=== PATIENT | female | born 1960 | race Caucasian/White ===

== ENCOUNTER → 2020-02-08 11:33 | Emergency (ER) | payer SELFPAY ==
--- NOTE | 2020-02-08 11:49 | ED_ITS ---
HPI - URI/Sore Throat General Stated Complaint: cough/sob Time Seen by Provider: 02/08/20 11:40 Source: patient, family and RN notes reviewed History of Present Illness HPI Narrative: Patient's son arrived requesting that patient be evaluated due to symptoms of shortness of breath, cough, chest tightness with deep breathing, and possible low-grade fevers. Patient's temperature was taken and temperature was 98.1 and the other 99.1. Patient states that she has history of COPD and hypertension. 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 Patient denies of any known positive cases in her current workplace. Patient is in no acute distress. Full assessment was not completed on the patient. Patient remained in her vehicle due to decreasing the risk of exposure to employees as well as non-sick patients for [facility]. Information/testing qualifications were filled out on ID website and patient did meet requirements for testing. Patient was called to return to the facility for further evaluation and it was explained to the patient and her son that we could not test for COVID however she does meet requirements and her authorization code would be given to her for further testing at another testing site. Patient son states that he would rather go to the testing site for further evaluation and testing rather than be seen at 2 facilities. Patient son came to the door and was given authorization code for testing as well as the address of a local testing site. Patient son was highly appreciative of the care they received in the authorization code provided. Patient was directed to [facility] in [place], and that facility was also notified, without breaking HIPAA violation, that patient was going to be coming to their facility with an authorization code. Facility was more than happy to see the patient. Patient son was also advised to call if he had any further questions or if the patient changed her mind and wished to be seen at our facility. Again, patient was in no acute distress and she was given a mask prior to leaving property. Further direction was given from upper management, and they are aware of the current situation. Patient will be called on her cell phone provided to the facility, as a follow-up later today. Related Data Allergies Allergy/AdvReac Type Severity Reaction Status Date / Time Penicillins Allergy Unknown hives Verified 08/26/19 13:39 Sulfa (Sulfonamide Allergy Unknown hives Verified 08/26/19 13:39 Antibiotics) Discharge Plan Discharge Follow-up/Referrals: UNKNOWN,DOCTOR [Primary Care Provider] -
== END | disposition left against medical advice (07) ==
LOC: EXPGLEN 11:35
PROVIDERS: Emergency Provider Nurse Practitioner Family
DX: R05 Cough (principal)
CPT/HCPCS: 99199

== ENCOUNTER 2020-05-22 12:01 | Observation (INO) | payer SELFPAY ==
[2020-05-22] VITALS (12 sets, daily range): BP systolic 111–148; BP diastolic 64–99; PULSE 74–92; RESP 16–23; TEMP 36.2–36.7; O2SAT 92–97
--- NOTE | ~2020-05-22 | XR_ITS ---
EXAMINATION: XR chest 2V DATE: 05/22/2020 12:42 INDICATION: Shortness of breath. TECHNIQUE: Frontal and lateral views of the chest were obtained. COMPARISON: None. FINDINGS: There is mild atelectasis in left upper lobe. No pleural effusion or pneumothorax. The hear t size is normal. IMPRESSION: 1. Mild atelectasis in left upper lobe. Reviewed, dictated and finalized at location A.
--- NOTE | 2020-05-22 12:20 | ECG_ITS ---
Measurements Intervals [place] Rate: 91 P: 244 [place]: 137 QRS: 67 QRSD: 82 T: 87 QT: 353 QTc: 435 Interpretive Statements ECTOPIC ATRIAL RHYTHM BASELINE ARTIFACT- I, II, III, AVR, AVL, AVF, V1 ABNORMAL ECG Electronically Signed On 05-22-2020 15:18:05 CDT by Eliecer Burgess D.O.
--- NOTE | 2020-05-22 12:34 | PC.NURSE ---
Pt to imaging
[2020-05-22] MEDS: ALBUTEROL SULFATE NEB 2.5 MG/0.5 ML INH 5 MG INHALATION (12:41)
[2020-05-22] MEDS: IPRATROPIUM BR 0.02% INH SOLN 0.5 MG/2.5 ML VIAL INHALATION (12:41)
--- NOTE | 2020-05-22 12:44 | PC.NURSE ---
Pt getting neb treatment. Will wait to draw blood and give other medication until it is done, due to the aersolazation of the treatment
[2020-05-22] MEDS: methylPREDNISolone SOD SUCC 125 MG VIAL IV PUSH ×2 (12:53→17:47)
--- NOTE | 2020-05-22 13:07 | PC.NURSE ---
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 Another medication was taken from [facility] and original was thrown out.
[2020-05-22 13:27] LABS: INR 0.9; Prothrombin Time 11.8 Seconds (11.1-14.7)
[2020-05-22 14:27] LABS: Basophils Percent Auto 0.3 % (0.2-1.2); Eosinophils Percent Auto 0.3 % (0-4.4); Hematocrit 43.8 % (37.0-47.0); Hemoglobin 14.8 g/dL (12.0-15.0); Immature Granulocyte Absolute 0.02 K/mm3 (0.00-0.031); Immature Granulocyte Percent A 0.3 % (0-0.5); Lymphocytes Absolute Auto 1.28 K/mm3 (0.9-3.2); Lymphocytes Percent Auto 18.2 % (18.3-44.2); Mean Corpuscular HGB Conc 33.8 g/dl (32-36); Mean Corpuscular Hemoglobin 31.3 pg (26-34); Mean Corpuscular Volume 92.6 fl (80-100); Mean Platelet Volume 9.2 fl (7.4-10.4); Monocytes Absolute Auto 0.3 K/mm3 (0.1-0.6); Monocytes Percent Auto 3.7 % (2.6-8.5); Neutrophils Absolute Auto 5.5 K/mm3 (1.3-6.7); Neutrophils Percent Auto 77.2 % (45.5-73.1); Platelet Count Result 284 k/mm3 (150-375); Red Blood Count 4.73 M/mm3 (4.2-5.4); Red Cell Distribution Width 12.6 % (11.5-14.5); White Blood Count 7.1 K/mm3 (4.5-10.0)
[2020-05-22 14:44] LABS: Alanine Aminotransferase 17 U/L (4-35); Albumin Level 4.7 g/dL (3.5-5.1); Alkaline Phosphatase 85 U/L (38-126); Aspartate Amino Transferase 27 U/L (14-36); Bilirubin,Total 0.5 mg/dL (0.2-1.3); Blood Urea Nitrogen 13 mg/dL (7-17); Calcium 10.9 mg/dL (8.4-10.2); Carbon Dioxide 24 mmol/L (22-30); Chloride 103 mmol/L (98-107); Estimated CRCL calculation 98 ml/min; Estimated Glomerular Filt Rate > 60; Glucose 109 mg/dL (65-105); Potassium 3.5 mmol/L (3.4-5.0); Sodium 136 mmol/L (137-145)
[2020-05-22 14:49] LABS: NT Pro B Type Natriuretic Pept 65 PG/ML (5-100)
--- NOTE | 2020-05-22 15:29 | ED.GENADULT ---
HPI - General Adult General Chief complaint: Shortness of Breath/Dyspnea Stated complaint: sob/tested for covid yest ? Time Seen by Provider: 05/22/20 12:11 Source: patient and family Mode of arrival: ambulatory Limitations: no limitations History of Present Illness HPI narrative: 60-year-old with a history of COPD, hypertension here with complaints of shortness of breath for past few days. Patient states that she has been using her home nebulizer treatment with no significant relief. She denies any fever or chills. Has nonproductive cough at times. No history of any COVID exposure. Onset (ago): week(s) (1) Severity: moderate Relieving factors: none Associated symptoms: cough and shortness of breath Related Data Home Medications Medication Instructions Recorded Confirmed albuterol sulfate 1 INHALATION TID PRN 05/22/20 amlodipine 5 mg PO DAILY 05/22/20 05/22/20 losartan-hydrochlorothiazide 1 tablet PO DAILY 05/22/20 05/22/20 Allergies Allergy/AdvReac Type Severity Reaction Status Date / Time Penicillins Allergy Unknown hives Verified 05/22/20 12:12 Sulfa (Sulfonamide Allergy Unknown hives Verified 05/22/20 12:12 Antibiotics) Review of Systems Review of Systems: All systems reviewed & are unremarkable except as noted in HPI and below Constitutional: Constitutional: Reports no additional constitutional complaints Eyes: Eyes: Reports no additional eye complaints Cardiovascular: Cardiovascular: Reports no additional cardiovascular complaints Respiratory: Respiratory: Reports as per HPI Gastrointestinal: Gastrointestinal: Reports no additional gastrointestinal complaints Musculoskeletal: Musculoskeletal: Reports no additional musculoskeletal complaints Neurologic: Reports system reviewed and no additional complaints, except as documented Psychiatric: Psychiatric: Reports no additional psychiatric complaints [facility] Social History Social History (Updated 05/22/20 @ 15:35 by Nathan Masterson MD) Smoking status: Current every day smoker Tobacco type: cigarettes Alcohol intake: never Substance use: never Living arrangements: alone Gender identity (if verbalized by the patient): Female Exam Narrative: Exam Narrative: GENERAL: Well-appearing, well-nourished, and in no acute distress. HEAD: Normocephalic, atraumatic. EYES: PERRLA and EOMI. ENT: Nares clear, no rhinorrhea or epistaxis. Mucous membranes moist. NECK: Supple. CHEST: Bilateral wheeze no respiratory distress. HEART: Regular rate and rhythm. No murmur heard. Normal peripheral pulses. ABDOMEN: Soft, nontender, nondistended, normal active bowel sounds. EXTREMITIES: Normal range of motion. No edema. SKIN: Warm, dry, no rash. NEURO: No focal deficits. Alert and oriented x3. PSYCH: Normal mood and affect. Course Course Emergency Course: Patient felt better after nebulizer treatment however her O2 saturations were 88 to 87% on room air. With 2 L picked up to 94% I discussed labs EKG and chest x-ray findings with the patient and the son will admit her for COPD exacerbation. Vital Signs Vital signs: Vital Signs Temperature 36.7 C 05/22/20 12:05 Pulse Rate 92 05/22/20 12:05 Respiratory Rate 18 05/22/20 12:05 Blood Pressure 148/90 H 05/22/20 12:05 Pulse Oximetry 94 05/22/20 12:05 Temperature 36.7 C 05/22/20 12:05 Pulse Rate 76 05/22/20 15:12 Respiratory Rate 22 H 05/22/20 15:12 Blood Pressure 125/78 05/22/20 15:12 Pulse Oximetry 92 05/22/20 15:12 Medical Decision Making Differential Diagnosis Differential Diagnosis: CHF, COPD, bronchitis, pneumonia Vital Signs Vital Signs: Vital Signs Temperature 36.7 C 05/22/20 12:05 Pulse Rate 92 05/22/20 12:05 Respiratory Rate 18 05/22/20 12:05 Blood Pressure 148/90 H 05/22/20 12:05 Pulse Oximetry 94 05/22/20 12:05 Temperature 36.7 C 05/22/20 12:05 Pulse Rate 76 05/22/20 15:12 Respiratory Rate 22 H 05/22/20 15:12 Blood P
[2020-05-22 15:41] LABS: Troponin I 0.022 ng/mL (0.000-0.034)
--- NOTE | 2020-05-22 16:35 | PC.NURSE ---
Called to give report and they did not recieve the SBAR I set at 1417. Will send SBAR up in tube station now
--- NOTE | 2020-05-22 17:52 | ADMGEN ---
This patient, Majrorie Rhodes, was admitted to [facility] Surg Room 329-01. Patient/family oriented to hospital policies and general routines including ID bracelet, bed and alarms, visiting hours, pain management, procedures, bathroom and other care routines, personal items, smoking policy, room service/diet, and visiting hours. Valuables list has been completed. Information on how to activate the Rapid Response Team has been discussed. Patient/Family are encouraged to report perceived risks to care and to ask questions if they do not understand what they are told or what they should do.
[2020-05-22] MEDS: ACETAMINOPHEN 325 MG TABLET 650 MG PO (19:42)
[2020-05-22] MEDS: ALBUTEROL SULFATE (*SP) AEROSOL 1 PUFF 2 PUFF INHALATION (21:02)
--- NOTE | 2020-05-22 21:39 | PM.IMHP ---
H&P: HPI History of Present Illness Chief complaint: COPD exacerbation Narrative: Marjorie Rhodes is a 60 year old female who has a history of COPD. And also hypertension. 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 She said that every Wednesday they get checked for COVID. She stated she got checked for COVID this last week and was told that she was negative. The patient does smoke a half pack to a pack cigarettes a day. She stated that since she got the results of her COVID testing that was negative she felt terrible. She said on Wednesday she just was not feeling very well but did have a fever. She said she felt terrible over the weekend. She had been coughing and short of breath she had been using her nebulizer machine. 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 She is not coughing anything up. At home. She said that the residents at [facility] do have COVID there but none of the employees have been positive. The patient stated that she was tested at the outside facility and was not tested here. However she was placed on isolation here. Patient was started on Solu-Medrol and inhalers. Date of service 05/22/2020 Review of Systems Review of Systems: All systems reviewed & are unremarkable except as noted in HPI and below Constitutional: Constitutional: Reports as per HPI and Reports no additional constitutional complaints Eyes: Eyes: Reports as per HPI and Reports no additional eye complaints ENT: Reports system reviewed and no additional complaints, except as documented and Reports Normal hearing present Cardiovascular: Cardiovascular: Reports no additional cardiovascular complaints Respiratory: Respiratory: Reports no additional respiratory complaints and Reports no additional respiratory complaints Gastrointestinal: Gastrointestinal: Reports as per HPI and Reports no additional gastrointestinal complaints Musculoskeletal: Musculoskeletal: Reports no additional musculoskeletal complaints Integumentary/Breasts: Skin/Breast: Reports system reviewed and no additional complaints, except as docu and Reports as per HPI Neurologic: Reports system reviewed and no additional complaints, except as documented, Reports as per HPI and Reports Normal hearing present Psychiatric: Psychiatric: Reports no additional psychiatric complaints and Reports as per HPI Endocrine: Endocrine: Reports no additional endocrine complaints Hematologic/Lymphatic: Hematologic/Lymphatic: Reports no additional hematologic/lymphatic complaints Allergic/Immunologic: Allergic/Immunologic: Reports no additional allergic/immunologic complaints [facility] Surgical History Surgical History (Updated 05/22/20 @ 21:47 by Trish Flaherty NP) H/O: hysterectomy History of tonsillectomy Hx of cholecystectomy Family History Family History Mother Hypertension Father Myocardial infarction Sibling Hypertension Social History Social History (Updated 05/22/20 @ 21:47 by Trish Flaherty NP) Social History: Patient stated that she smokes anywhere from half to a pack a cigarettes a day. She denies any marijuana or street drugs. She is and she has 3 children. She does not have a durable power deputy county attorney for healthcare but desires to be a full code at this time. Smoking packs per day: 1 Smoking cigarettes per day: 20.0 Smoking status: Current every day smoker Tobacco type: cigarettes Alcohol intake: never Substance use: never Living arrangements: alone Gender identity (if verbalized by the patient): Female Spiritual care concerns: No Meds Home Medications and Allergies Home Medications Medication Instructions Recorded Confirmed Type albuterol sulfate 2.5 mg INHALATION TID PRN 05/22/20 05/22/20 History amlodipine 5 mg PO DAILY 05/22/20 05/22/20 History losartan-hydrochlorothiazide 1 tablet PO DAILY 05/22/20 05/22/20 History Allergies Allergy/AdvReac Type Se
[2020-05-22] MEDS: NICOTINE (*PBKC) 21 MG PATCH 1 PATCH TRANSDERM (22:28)
[2020-05-22] MEDS: methylPREDNISolone SOD SUCC 125 MG VIAL 80 MG IV PUSH (23:48)
[2020-05-23 02:00] VITALS: BP 120/68; PULSE 69; RESP 20; TEMP 36.8; O2SAT 96
[2020-05-23 06:00] VITALS: BP 119/68; PULSE 76; RESP 20; TEMP 36.3; O2SAT 98
[2020-05-23] MEDS: methylPREDNISolone SOD SUCC 125 MG VIAL 80 MG IV PUSH ×2 (06:05→12:24)
[2020-05-23 06:55] LABS: Basophils Percent Auto 0.1 % (0.2-1.2); Hematocrit 43.8 % (37.0-47.0); Immature Granulocyte Absolute 0.02 K/mm3 (0.00-0.031); Immature Granulocyte Percent A 0.3 % (0-0.5); Lymphocytes Absolute Auto 0.67 K/mm3 (0.9-3.2); Lymphocytes Percent Auto 9.1 % (18.3-44.2); Mean Corpuscular HGB Conc 34.2 g/dl (32-36); Mean Corpuscular Hemoglobin 31.1 pg (26-34); Mean Corpuscular Volume 90.9 fl (80-100); Mean Platelet Volume 9.2 fl (7.4-10.4); Monocytes Absolute Auto 0.2 K/mm3 (0.1-0.6); Monocytes Percent Auto 3.2 % (2.6-8.5); Neutrophils Absolute Auto 6.5 K/mm3 (1.3-6.7); Neutrophils Percent Auto 87.3 % (45.5-73.1); Platelet Count Result 297 k/mm3 (150-375); Red Blood Count 4.82 M/mm3 (4.2-5.4); Red Cell Distribution Width 12.3 % (11.5-14.5); White Blood Count 7.4 K/mm3 (4.5-10.0)
[2020-05-23 07:04] LABS: Lactic Acid 0.9 mmol/L (0.7-2.1)
[2020-05-23 07:06] LABS: Bilirubin,Total 0.5 mg/dL (0.2-1.3); Blood Urea Nitrogen 17 mg/dL (7-17); Chloride 103 mmol/L (98-107)
[2020-05-23 07:49] LABS: Alanine Aminotransferase 17 U/L (4-35); Albumin Level 4.7 g/dL (3.5-5.1); Alkaline Phosphatase 83 U/L (38-126); Aspartate Amino Transferase 22 U/L (14-36); CRP 0.7 mg/dL (<1.0); Calcium 11.1 mg/dL (8.4-10.2); Carbon Dioxide 24 mmol/L (22-30); Estimated CRCL calculation 98 ml/min; Estimated Glomerular Filt Rate > 60; Glucose 137 mg/dL (65-105); Magnesium 2.1 mg/dL (1.6-2.3); Potassium 4.1 mmol/L (3.4-5.0); Sodium 137 mmol/L (137-145)
[2020-05-23 08:45] VITALS: O2SAT 92
[2020-05-23] MEDS: ALBUTEROL SULFATE (*SP) AEROSOL 1 PUFF 2 PUFF INHALATION ×2 (08:47→12:51)
[2020-05-23] MEDS: ENOXAPARIN 40 MG/0.4 ML SYRINGE SUB-Q (08:55)
[2020-05-23] MEDS: AMLODIPINE BESYLATE 5 MG TABLET PO (08:56)
[2020-05-23] MEDS: LOSARTAN POTASSIUM 50 MG TABLET PO (08:56)
[2020-05-23] MEDS: hydroCHLOROthiazide 12.5 MG CAPSULE PO (08:56)
--- NOTE | 2020-05-23 09:27 | PCRCNOTE ---
Pt only takes the Albuterol inhaler at home PRN and she takes Anoro allipta. She refused the Spiriva and doesnt want to take Symbicort to substitute the Anor ellipta. RN is aware.
[2020-05-23 10:00] VITALS: BP 107/63; PULSE 82; RESP 16; TEMP 36.1; O2SAT 93
[2020-05-23 11:50] VITALS: PULSE 77; RESP 18; O2SAT 91
--- NOTE | 2020-05-23 13:28 | PM.DS ---
DS: Admitting Diagnosis Admitting Diagnosis Admitting Diagnosis: Contact with and (suspected) exposure to other viral communicable diseases DS: Discharge Diagnosis Discharge Diagnosis (1) Suspected COVID-19 virus infection: Code(s): Z20.828 - Contact with and (suspected) exposure to other viral communicable diseases Status: Acute Assessment and Plan: Patient stated that she was tested at an outside facility and was awaiting results. She was tested 2 additional times and was found to be negative. The [facility] will be calling her with results. We discussed improtance of isolation in the event of a positive result, as well as additional precautions including social distancing, mask weaing, and hand hygiene. She was placed on contact/droplet isolation during her stay. (2) COPD (chronic obstructive pulmonary disease): Qualifiers: COPD type: COPD with acute exacerbation Qualified Code(s): J44.1 - Chronic obstructive pulmonary disease with (acute) exacerbation Code(s): J44.9 - Chronic obstructive pulmonary disease, unspecified Status: Chronic Assessment and Plan: It appeared that she had a COPD exacerbation based on her SOB and increased oxygen requirement as she typically does not require supplemental O2. She was started on solu-medrol and was given albuterol and ipratropium inhalers. She was weaned to room air and her SOB improved. She was discharged with albuterol and spiriva as well as a short course of prednisone taper. I recommended that she follow up with her PCP for PFT and she may benefit from referral to a mobile homes repairer. Smoking cessation was discussed as noted below. (3) HTN (hypertension): Code(s): I10 - Essential (primary) hypertension Status: Chronic Assessment and Plan: BP was well controlled. She will continue with amlodipine, losartan and hydrochlorothiazide. (4) Nicotine abuse: Code(s): Z72.0 - Tobacco use Status: Acute Assessment and Plan: I educated her on smoking cessation for 5 minutes. It is imperative that she quit smoking given her COPD exacerbation, however she is not interested in quitting at this time. She requested a nicotine patch during her stay. DS: Summary Hospital Course Reason for hospitalization: Shortness of breath Hospital Course: Date of admission: 05/22/2020 Date of discharge: 05/23/2020 Marjorie Rhodes is a 60 year old female with a history of HTN, COPD, and nicotine dependence who presented to the ED on with complaints of increased shortness of breath over the past several days requiring increased use of nebulizer treatments, as well as increased cough. She denied fevers or chills. She works at [employer], and therefore her she has been tested for COVID-19 on a weekly basis, and all of her tests have been negative. She was awaiting the results of her most recent test from ID. At presentation, AVSS, WBC 7.1, H&H 14.8 and 43.8, sodium 136, potassium 315, BUN 13, creatinine 0.5, glucose 109, BNP 65, and chest x-ray demonstrating mild atelectasis left upper lobe. She was admitted to the hospitalist service and started on IV Solu-Medrol as well as inhaled bronchodilators. She was placed in isolation given her pending COVID test, therefore nebulizer treatments were not utilized. She began feeling much better, her shortness of breath resolved, and she was weaned to room air. Given this improvement, she was determined to no longer require inpatient care. She will continue a short course of oral prednisone. She was also given a Spiriva inhaler and will continue her albuterol as needed. We discussed worrisome signs and symptoms for which to return and she was instructed to follow-up with her PCP in 1-2 weeks. She was discharged home in hemodynamically stable condition on the afternoon of 05/23/2020. Time spent discussing smoking cessation with patient: 3 to 10 minutes Status at Discharge Functional status a
== END 2020-05-23 14:30 | disposition home or self-care (01) ==
LOC: ANHED 15:45 → ANH3MEDSUR 16:15
PROVIDERS: Nurse Practitioner; Admitting Provider Internal Medicine; Emergency Provider Family Medicine; PCP Internal Medicine; Visit Provider Physician Assistant
DX: J44.1 Chronic obstructive pulmonary disease with (acute) exacerbation (principal); Z20.828 Contact with and (suspected) exposure to other viral communicable diseases; I10 Essential (primary) hypertension; F17.210 Nicotine dependence, cigarettes, uncomplicated
CPT/HCPCS: 36415; 71046; 80053; 83605; 83735; 83880; 84484; 85025; 85610; 86140; 93005; 94640; 96372; 96374; 96376; 99285; A9270; G0378; G0379; J1650; J2930

== ENCOUNTER 2020-09-17 13:46 | Outpatient (CLI) | payer OTHER, SELFPAY ==
--- NOTE | ~2020-09-17 | XR_ITS ---
EXAMINATION: XR thoracic spine 3V EXAM DATE: 09/17/2020 14:06 INDICATION: Chronic thoracolumbar pain. TECHNIQUE: Frontal and lateral projections of the thoracic spine as well as lateral swimmers projecti on of the upper thoracic spine for interpretation. There is no prior study for comparison. FINDINGS: There is mild mid and lower thoracic disc disease. The vertebral body heights relatively w ell-maintained. Some small endplate osteophytes and Schmorl's nodes. The vertebral bodies are aligned in the AP dimension. Paraspinal soft tissue is unremarkable. There are no bony erosions identified. IMPRESSION: Mild thoracic spondylosis. Reviewed, dictated and finalized at location B. TING FRAME FIXER IMPRESSION: Mild thoracic spondylosis.
--- NOTE | ~2020-09-17 | XR_ITS ---
EXAMINATION: XR lumbar spine 2-3V EXAM DATE: 09/17/2020 14:06 INDICATION: Chronic low back pain. TECHNIQUE: Lumber spine frontal, lateral, lateral L5-S1 projections for interpretation. There is no prior study for comparison. FINDINGS: There is moderate lumbar dextroscoliosis. Overall moderate lumbar disc disease at all leve ls. The vertebral bodies are aligned in the AP dimension. Moderate lumbar facet arthropathy. Some aor tic arterial sclerosis. Sacrum, sacroiliac joints, sacral arcuate lines are intact. IMPRESSION: 1. Moderate lumbar dextroscoliosis. 2. Moderate spondylosis. Reviewed, dictated and finalized at location B. TRIC MOTOR WINDERS ASSEMBLER
== END 2020-09-17 13:47 | disposition home or self-care (01) ==
PROVIDERS: PCP Internal Medicine; Visit Provider Internal Medicine
DX: G89.29 Other chronic pain (principal); M41.86 Other forms of scoliosis, lumbar region; M47.816 Spondylosis without myelopathy or radiculopathy, lumbar region; M47.814 Spondylosis without myelopathy or radiculopathy, thoracic region
CPT/HCPCS: 72072; 72100

== ENCOUNTER 2021-07-11 12:42 | Emergency (ER) | payer OTHER, SELFPAY ==
--- NOTE | ~2021-07-11 | XR_ITS ---
EXAMINATION: XR chest 1V portable DATE: 07/11/2021 13:26 INDICATION: Cough. TECHNIQUE: A single frontal view of the chest was obtained. COMPARISON: Chest 2 views 05/22/2020 FINDINGS: A calcified right lung nodule is consistent with old granulomatous disease. There is mild b andlike scarring in left upper lobe. No pleural effusion or pneumothorax. The heart size is normal. IMPRESSION: 1. Stable mild scarring in left upper lobe. Reviewed, dictated and finalized at location A.
[2021-07-11 13:07] VITALS: BP 143/88; PULSE 80; RESP 18; TEMP 36.3; O2SAT 96
--- NOTE | 2021-07-11 15:12 | ED.URI ---
HPI - URI/Sore Throat General Chief Complaint: Upper Respiratory Infection Stated Complaint: Sore throat Time Seen by Provider: 07/11/21 12:57 Source: patient Mode of arrival: ambulatory Limitations: no limitations History of Present Illness HPI Narrative: This is a 61-year-old female that presents to the emergency department for cold symptoms since yesterday. Reports cough, congestion, and sore throat. Reports she has been around her grandson who is also sick. She is vaccinated for Covid. Denies fever or shortness of breath. Related Data Home Medications Medication Instructions Recorded Confirmed albuterol sulfate 07/11/21 07/11/21 albuterol sulfate [Ventolin HFA] INHALATION 07/11/21 amlodipine 07/11/21 budesonide-formoterol [Symbicort] INHALATION 07/11/21 losartan-hydrochlorothiazide tablet 07/11/21 Allergies Allergy/AdvReac Type Severity Reaction Status Date / Time Penicillins Allergy Rash Verified 07/11/21 13:04 Sulfa (Sulfonamide Allergy Rash Verified 07/11/21 13:04 Antibiotics) Review of Systems Review of Systems: CONSTITUTIONAL: Denies fever ENT: Reports congestion, sore throat RESPIRATORY: Reports cough. Denies dyspnea. All systems reviewed & are unremarkable except as noted in HPI and below PMFSH Past Medical History Medical History (Updated 07/11/21 @ 16:22 by Blanca Salazar PA-C) History of COPD History of hypertension Social History Social History (Updated 07/11/21 @ 15:13 by Blanca Salazar PA-C) Smoking status: Current every day smoker Exam Narrative: GENERAL: Well-appearing, well-nourished, and in no acute distress. HEAD: Normocephalic, atraumatic. EYES: EOMI. ENT: Nares clear, no rhinorrhea or epistaxis. Mucous membranes moist. Oropharynx with mild erythema and tonsillar hypertrophy, no exudate or other lesions. Bilateral TMs pearly scott non-bulging NECK: Supple. No adenopathy or masses. CHEST: Clear to auscultation. No respiratory distress. No wheezes rales or rhonchi HEART: Regular rate and rhythm. No murmur heard. Normal peripheral pulses. EXTREMITIES: Normal range of motion. No edema. SKIN: Warm, dry, no rash. NEURO: No focal deficits. Alert and oriented x3. PSYCH: Normal mood and affect Course Vital Signs Vital signs: Vital Signs Temperature 97.4 F L 07/11/21 13:07 Pulse Rate 80 07/11/21 13:07 Respiratory Rate 18 07/11/21 13:07 Blood Pressure 143/88 H 07/11/21 13:07 Pulse Oximetry 96 07/11/21 13:07 Temperature 97.4 F L 07/11/21 13:07 Pulse Rate 80 07/11/21 13:07 Respiratory Rate 18 07/11/21 13:07 Blood Pressure 143/88 H 07/11/21 13:07 Pulse Oximetry 96 07/11/21 13:07 MDM - URI/Sore Throat MDM Narrative Medical decision making narrative: Patient presents to the emergency department for cold symptoms present since yesterday. He is afebrile and nontoxic-appearing. Lungs are clear on exam. Strep screen is negative. SARS-CoV-2 was sent. No evidence of pneumonia on chest x-ray. Patient was instructed on care of viral infection. She is stable and felt appropriate for further outpatient evaluation. She was given warnings to return to the ER Lab Data Attestation: I reviewed the patient's lab results. Labs: Lab Results 07/11/21 Range/Units 15:23 SARS-CoV-2 RNA (RT-PCR) Pending Strep Screen Presumptive Negative *(Reference Range: Negative)* Imaging Data Radiologist's impression: ITS Impressions Chest X-Ray 07/11/21 13:36 IMPRESSION: 1. Stable mild scarring in left upper lobe. Critical Care Time Critical Care Time Critical Care Time: No Discharge Plan Discharge Clinical Impression: Person under investigation for severe acute respiratory syndrome coronavirus 2 (SARS-CoV-2) infection Upper respiratory infection Qualifiers: URI type: unspecified URI Qualified Code(s): J06.9 - Acute upper respiratory infection, unspecif
[2021-07-11 16:52] VITALS: BP 163/100; PULSE 71; RESP 16; O2SAT 97
[2021-07-12 22:45] LABS: SARS-CoV-2 RNA PCR Negative
== END 2021-07-11 16:55 | disposition home or self-care (01) ==
PROVIDERS: Physician Assistant; Emergency Provider Emergency Medicine; PCP Internal Medicine
DX: J06.9 Acute upper respiratory infection, unspecified (principal); Z20.822 Contact with and (suspected) exposure to COVID-19; J44.9 Chronic obstructive pulmonary disease, unspecified; I10 Essential (primary) hypertension; F17.200 Nicotine dependence, unspecified, uncomplicated
CPT/HCPCS: 71045; 87081; 87880; 99283; C9803; U0003; U0005

== ENCOUNTER 2021-12-31 14:09 | Outpatient (CLI) | payer OTHER, SELFPAY ==
--- NOTE | ~2021-12-31 | MM_ITS ---
EXAMINATION: MM screening saeed BI w sindi HISTORY: Screening TECHNIQUE: Craniocaudal and mediolateral oblique 3-D tomosynthesis images were obtained and synthetic 2-D images were generated. CAD analysis was submitted and interpreted. COMPARISON: No prior mammogram is available for comparison at this institution. BREAST PARENCHYMAL COMPOSITION: There are scattered areas of fibroglandular density. FINDINGS: There is no evidence of suspicious mass, calcification, or architectural distortion to sugg est malignancy in either breast. There has been no suspicious interval change. IMPRESSION: 1. No mammographic evidence of malignancy. 2. Recommend routine screening mammography in one year. BI-RADS Category 1: Negative Reviewed, dictated and finalized at location A. SPECIALIST
== END 2021-12-31 14:10 | disposition home or self-care (01) ==
LOC: ANHIMG 14:11
PROVIDERS: PCP Family Medicine; Visit Provider Family Medicine
DX: Z12.31 Encounter for screening mammogram for malignant neoplasm of breast (principal)
CPT/HCPCS: 77063; 77067